=== PATIENT | female | born 1945 | race Two or more races ===

== ENCOUNTER 2018-09-06 09:20 | Day surgery (SDC) | payer OTHER ==
[2018-09-03 11:31] VITALS: BMI 33.0
--- NOTE | 2018-09-06 10:42 | HP ---
History & Physical Update - History History: No Change Currently as noted:: Uterine polyp, - Physical Physical: No Change - Assessment Assessment: No Change - Plan Plan: No Change Currently as noted:: Hysteroscopy, polypectomy, D&C
[2018-09-06] MEDS ORDERED: DEXAMETHASONE SOD PHOSPHATE 4 MG/1 ML VIAL ONE (10:58)
--- NOTE | 2018-09-06 11:21 | OP ---
Operative Note - Note: Operative Date: 09/06/18 Pre-Operative Diagnosis: PMB, endometrial polyp Operation: Hysteroscopy, D&C Findings: Small amount of old blood in endometrial cavity. Normal uterine cavity with atrophic endometrium Post-Operative Diagnosis: Other (Normal uterine cavity with atrophic endometrium ) Surgeon: Papa Reardon Anesthesiologist/MAJOR DONOR COORDINATOR: Beth Tucker Anesthesia: General Specimens Removed: Endometrial curettings Estimated Blood Loss (mls): 2 Blood Volume Replaced (mls): 0 Fluid Volume Replaced (mls): 400 Operative Report Dictated: Yes
[2018-09-06] MEDS ORDERED: ONDANSETRON 4 MG/2 ML VIAL IVPUSH PRN (11:27)
[2018-09-06] MEDS ORDERED: oxyCODONE HCL 5 MG TABLET PO PRN (11:27)
[2018-09-06] MEDS ORDERED: LACTATED RINGERS SOLUTION 1,000 ML IV SCH (11:30)
[2018-09-06 13:38] VITALS: BP 122/71; PULSE 72; TEMP 97.3
--- NOTE | 2018-09-06 20:27 | OP ---
DATE OF OPERATION: 09/06/2018 PREOPERATIVE DIAGNOSES: Postmenopausal bleeding, endometrial polyp. POSTOPERATIVE DIAGNOSES: Postmenopausal bleeding, normal uterine cavity with atrophic endometrium. No endometrial polyps, masses, or lesions. SURGEON: Papa Reardon MD ANESTHESIOLOGIST: Beth Tucker MD ANESTHESIA: General. COMPLICATIONS: None. ESTIMATED BLOOD LOSS: Minimal. INTRAVENOUS FLUIDS: Crystalloids 400 mL. COMPLICATIONS: None. PATHOLOGY: Endometrial curettings. DESCRIPTION OF PROCEDURE: The patient was met preoperatively. Risks, benefits, alternatives of surgery were discussed in details. All questions were answered. The patient was brought to the OR with the IV running. She was placed on the surgical table in supine position. The general anesthesia was achieved without difficulty. The patient was then positioned in a dorsal lithotomy position using adjustable Von stirrups. She was examined under anesthesia and noted to have a small anteverted uterus with no pelvic or adnexal masses. The uterus was freely mobile within pelvis. The timeout procedure was then conducted as per standard protocol. The patient was prepped and draped in the usual sterile fashion. A weighted speculum was introduced inside the vagina with good visualization of the cervix. The cervix was grasped with a single-tooth tenaculum. The cervical os was dilated to accommodate a size 21 Blue dilator. A hysteroscope was introduced inside the uterine cavity. A small amount of old blood was noted within the uterine cavity. Once the uterine cavity was irrigated, it was observed to be within normal limits. Atrophic endometrium was noted. There were no endometrial lesions, polyps, or masses. The hysteroscope was then removed. Uterine curettage was performed, and tissue was sent to Pathology for evaluation. Once the procedure was completed, all of the instruments were removed from the patient. Good hemostasis was noted. Sponge, lap, and needle counts were correct. The patient was then transferred to recovery room awake and in stable condition. Dioni [id number]
--- NOTE | 2018-09-07 18:32 | PATH ---
Surgical Pathology Report Patient Name: SAMIRA GRANADOS Med. Rec. #: [id number] /Age/Gender: 1945 (Age: 73) / F Account: [id number] Location: [facility] Taken: 09/06/2018 Received: 09/06/2018 Reported: 09/07/2018 Physicians: Papa Reardon M.D. Specimen(s) Received ENDOMETRIAL CURETTINGS Clinical History Endometrial polyp and hyperplasia Final Diagnosis ENDOMETRIAL CURETTINGS: STRIPS OF WEAKLY PROLIFERATIVE SUPERFICIAL ENDOMETRIAL GLANDS WITHOUT STROMA. SEE COMMENT. SEPARATE FRAGMENTS OF SMOOTH MUSCLE BUNDLE AND SQUAMOUS EPITHELIUM WITH NO DIAGNOSTIC ABNORMALITIES. Comment: Findings may represent atrophic endometrium in a proper clinical setting. Clinical correlation recommended. Electronically Signed Balbina Petty M.D. Gross Description Received in formalin labeled "endometrial curettings," is a 0.3 x 0.2 x 0.1 cm aggregate of almazan soft tissue fragments. The formalin is filtered is entirely submitted in one cassette. /09/06/2018 saudi/09/06/2018
== END 2018-09-06 13:39 | disposition home or self-care (01) ==
LOC: JASU-SURG 09:20
PROVIDERS: ATTEND Obstetrics & Gynecology
PROC: 0UDB8ZX Extraction of Endometrium, Via Natural or Artificial Opening Endoscopic, Diagnostic (ICD-10-PCS; principal; 2018-09-06 11:00)
DX: N95.0 Postmenopausal bleeding (principal); N85.8 Other specified noninflammatory disorders of uterus; I10 Essential (primary) hypertension; K21.9 Gastro-esophageal reflux disease without esophagitis
CPT/HCPCS: 86850; 86870; 86900; 86901; 86902; 88305-TC; 94760